=== PATIENT | male | born 1970 | race Hispanic/Latino ===

== ENCOUNTER → 2016-06-24 | Outpatient (CLI) | payer BC | END | disposition home or self-care (01) | LOC: GMAB 11:04 | PROVIDERS: ATTEND Family Medicine | DX: Z12.5 Encounter for screening for malignant neoplasm of prostate (principal) ==

== ENCOUNTER → 2016-09-02 | Outpatient (CLI) | payer BC ==
--- NOTE | 2016-09-03 07:31 | RAD ---
EXAM DESCRIPTION: Shoulder,Right 2 or More Views CLINICAL HISTORY: 45 years Male, PAIN IN RIGHT SHOULDER COMPARISON: None. FINDINGS: There is no acute fracture or malalignment. The AC joint is unremarkable. There is no rib fracture or soft tissue abnormality. IMPRESSION: Negative exam. Electronically signed by: Jan Watkins MD 09/03/2016 7:31 AM CDT Workstation: [id number]
== END | disposition home or self-care (01) ==
LOC: RAD 07:35
PROVIDERS: ATTEND Orthopaedic Surgery
DX: M25.511 Pain in right shoulder (principal)

== ENCOUNTER → 2016-10-23 | Outpatient (CLI) | payer BC | END | disposition home or self-care (01) | LOC: GMAB 14:59 | PROVIDERS: ATTEND Family Medicine | DX: N41.1 Chronic prostatitis (principal) ==

== ENCOUNTER 2017-04-19 13:25 | Emergency (ER) | payer BC ==
[2017-04-19 13:39] VITALS: BP 122/84; TEMP 97.4; O2SAT 96
--- NOTE | 2017-04-19 13:41 | ED.PDOC ---
History of Present Illness - General Time Seen by Provider: 04/19/17 13:32 Source: patient Exam Limitations: no limitations - History of Present Illness Timing/Duration: days - two Quality/Severity: severe Back Pain Location: lumbar spine Back Pain Radiation: buttocks Method of Injury/Prior Injury: twisted Improving Factors: rest Worsening Factors: movement Associated Symptoms: lower back pain - has episodic scrotal pain with back spasms Allergies/Adverse Reactions: Allergies NO KNOWN ALLERGY Allergy (Verified 12/15/15 05:57) Home Medications: Ambulatory Orders Cyclobenzaprine HCl 10 mg PO BEDTIME 11/11/14 Lisinopril 20 mg PO DAILY 11/11/14 Simvastatin 10 mg PO DAILY 11/11/14 Tamsulosin [Flomax] 0.4 mg PO QD 11/11/14 Acetaminophen W/ Codeine [Tylenol W/ CODEINE #3] 1 ea PO Q4HR PRN #20 04/19/17 Dapagliflozin Propanediol [Farxiga] 10 mg PO DAILY 04/19/17 Esomeprazole Magnesium [Nexium] 40 mg PO DAILY 04/19/17 Review of Systems - Review of Systems Constitutional: States: no symptoms reported. Denies: fever, weakness EENTM: States: no symptoms reported Respiratory: States: no symptoms reported. Denies: orthopnea, short of breath Cardiology: States: no symptoms reported. Denies: chest pain, palpitations Gastrointestinal/Abdominal: States: no symptoms reported. Denies: abdominal pain, nausea, vomiting Genitourinary: States: see HPI, pain. Denies: discharge, dysuria, frequency, hematuria Musculoskeletal: States: back pain, muscle pain, muscle stiffness Skin: States: no symptoms reported. Denies: rash Neurological: States: paresthesia - to R hip. Denies: weakness Endocrine: Denies: no symptoms reported Hematologic/Lymphatic: States: no symptoms reported Past Medical History (General) - Patient Medical History Hx Seizures: No Hx Stroke: No Hx Dementia: No Hx Asthma: No Hx of COPD: No Hx Cardiac Disorders: No Hx Congestive Heart Failure: No Hx Pacemaker: No Hx Hypertension: Yes Hx Thyroid Disease: No Hx Diabetes: Yes Hx Gastroesophageal Reflux: Yes Hx Renal Disease: No Hx Cancer: No Hx of HIV: No Hx Hepatitis C: No Hx MRSA: No - Vaccination History Hx Tetanus, Diphtheria Vaccination: No Hx Influenza Vaccination: Yes Hx Pneumococcal Vaccination: No - Social History Hx Tobacco Use: No Hx Chewing Tobacco Use: No Hx Alcohol Use: Yes - social Hx Substance Use: No Hx Substance Use Treatment: No Hx Depression: No Hx Physical Abuse: No Hx Emotional Abuse: No Hx Suspected Abuse: No Family Medical History - Family History Mother Name: Urmila Living Status: Age at (years of age): 62 Cause of : stomach cancer Hx Family Diabetes: Yes Age of Onset (years of age): unk Hx Family Cancer: Yes - stomach Age of Onset (years of age): 60 Father Family History: Unknown Name: huang Age (years): 65 Living Status: Still Living Hx Family Hypertension: Yes Age of Onset (years of age): unk Hx Family Diabetes: Yes Age of Onset (years of age): unk Physical Exam - Physical Exam General Appearance: Alert, Obvious distress Eyes, Ears, Nose, Throat Exam: PERRL/EOMI Neck Exam: non-tender, full range of motion Cardiovascular/Respiratory: normal peripheral pulses Gastrointestinal/Abdominal: normal bowel sounds, non tender, soft Back Exam: no CVA tenderness, no vertebral tenderness, decreased range of motion - severe R lateral back pain with movement, muscle spasm Extremity Exam: no evidence of injury, non-tender, no pedal edema, pain with movement - has positive straight leg raise at 30 degrees on R 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, no motor/sensory deficits, normal mood/ affect, oriented x 3 Skin Exam: normal color, warm/dry Progress - EKG/XRAY/CT XRAY: Lumbar spine Xray Comments: no acute changes Departure - Departure Clinical Impression: Lumbar back pain with radiculopathy affecting right lower extremity Disposition: Discharge to Home or Self Care Condition: Fair Referrals: William Lee MD [Primary Care Provider] - 1-2 Weeks Prescriptions: Acetaminophen W/ Codeine [Tylenol W/ CODEINE #3] 1 ea PO Q4HR PRN #20 PRN Reason: Pain -- Moderate To Severe Home Medications: Ambulatory Orders Cyclobenzaprine HCl 10 mg PO BEDTIME 11/11/14 Lisinopril 20 mg PO DAILY 11/11/14 Simvastatin 10 mg PO DAILY 11/11/14 Tamsulosin [Flomax] 0.4 mg PO QD 11/11/14 Acetaminophen W/ Codeine [Tylenol W/ CODEINE #3] 1 ea PO Q4HR PRN #20 04/19/17 Dapagliflozin Propanediol [Farxiga] 10 mg PO DAILY 04/19/17 Esomeprazole Magnesium [Nexium] 40 mg PO DAILY 04/19/17
[2017-04-19] MEDS ORDERED: MORPHINE SULFATE INJ 10 MG/ML VIAL IM ONE (13:47)
[2017-04-19] MEDS ORDERED: PROMETHAZINE HCL INJ 25 MG/ML VIAL IM ONE (13:47)
--- NOTE | 2017-04-19 14:17 | RAD ---
EXAM DESCRIPTION: Lumbar Spine 3 Views CLINICAL HISTORY: 46 years Male, R low back pain after injuty COMPARISON: None. FINDINGS: 3 views of the lumbar spine show no vertebral body fracture or subluxation. Mild disc space narrowing at L5-S1. There are small marginal ossified at several levels, worse at L5-S1.. The sacroiliac joint spaces are well-maintained. IMPRESSION: Mild degenerative changes, worse at L5-S1. No additional abnormality to explain patient symptoms. Electronically signed by: Jan Watkins MD 04/19/2017 2:16 PM [facility]
== END 2017-04-19 14:43 | disposition home or self-care (01) ==
LOC: ER 13:25
DX: M54.16 Radiculopathy, lumbar region (principal); I10 Essential (primary) hypertension; E11.9 Type 2 diabetes mellitus without complications; K21.9 Gastro-esophageal reflux disease without esophagitis
CPT/HCPCS: 72100; J2270; J2550

== ENCOUNTER → 2017-06-13 | Outpatient (CLI) | payer BC ==
--- NOTE | 2017-06-13 17:36 | RAD ---
EXAM DESCRIPTION: Wrist,Right 3 Views CLINICAL HISTORY: 46 years, Male, PAIN IN RIGHT WRIST COMPARISON: None FINDINGS: Right wrist 3 x-ray views is negative for fracture or dislocation. Carpal relationships are well-maintained. Distal radius and ulna appear intact. Normal metacarpals. No significant arthritic changes are observed. IMPRESSION: Negative for fracture or dislocation. Electronically signed by: Dion Olson MD 06/13/2017 5:34 PM CDT
--- NOTE | 2017-06-13 17:39 | RAD ---
EXAM DESCRIPTION: Knee,Right Complete CLINICAL HISTORY: 46 years, Male, PAIN IN RIGHT KNEE COMPARISON: None TECHNIQUE: 4 views of the right knee FINDINGS: No fracture or dislocation. Bones appear normally mineralized with normal trabecular pattern. Severe narrowing of the medial compartment is noted on frontal view. Spurring is seen at the tibial spines. Tiny subchondral lucency in the weightbearing surface of the medial femoral condyle could be an osteochondral lesion. There is some sclerosis and eburnation of the medial femoral condyle. Lateral view shows normal position of the patella. Minimal patellar spurring with no enthesopathy. No suprapatellar knee joint effusion. Normal contour of quadriceps and patellar tendons. Mild lateral patellar tilt is seen with no significant subluxation on patellar sunrise view. Minimal spurring along the anterior lateral femoral condyle and lateral margin of the patella. IMPRESSION: Negative for fracture or dislocation. Degenerative changes as described. Electronically signed by: Dion Olson MD 06/13/2017 5:36 PM CDT
--- NOTE | 2017-06-13 17:40 | RAD ---
EXAM DESCRIPTION: Pelvis CLINICAL HISTORY: 46 years Male, PAIN IN RIGHT HIP COMPARISON: None. TECHNIQUE: Single AP x-ray view of the pelvis FINDINGS: No fracture. No dislocation. No osseous lytic lesion. Calcifications are seen in the region of the prostate. Lucency over the sacrum is thought to be related to fecal material and bowel gas. Degenerative changes are seen in the lower lumbar spine with prominent spurring at the lumbosacral junction anteriorly. IMPRESSION: Negative for fracture or dislocation. Electronically signed by: Dion Olson MD 06/13/2017 5:38 PM CDT
== END ==
LOC: RAD 08:19
PROVIDERS: ATTEND Orthopaedic Surgery
DX: M25.561 Pain in right knee (principal); M25.531 Pain in right wrist; M25.551 Pain in right hip

== ENCOUNTER → 2017-09-29 | Outpatient (CLI) | payer BC | LOC: GMAE 10:30 | PROVIDERS: ATTEND Family Medicine | DX: E11.9 Type 2 diabetes mellitus without complications (principal) ==

== ENCOUNTER → 2018-07-08 | Outpatient (CLI) | payer BC | LOC: GMAE 11:50 | PROVIDERS: ATTEND Family Medicine | DX: Z00.01 Encounter for general adult medical examination with abnormal findings (principal) ==

== ENCOUNTER → 2018-09-15 | Outpatient (CLI) | payer BC ==
--- NOTE | 2018-09-15 08:57 | MRI ---
Study: MRI of the Left Shoulder. Indication: ROTATOR CUFF TEAR Technique: Multiplanar, multi sequence MRI of the left shoulder was obtained without intravenous contrast. Comparison: None. Findings: Unfortunately, examination is moderately motion degraded. Moderate AC joint osteoarthritis with a moderate size joint effusion. Type I acromion with mild lateral downsloping. Trace subacromial/subdeltoid bursal fluid. High-grade supraspinatus and infraspinatus tendinosis. Effectively full-thickness, fullwidth supraspinatus tendon tearing with high grade interstitial/articular tearing anterior half of the infraspinatus tendon insertion. Torn tendon fibers retracted to the level of the lateral margin acromion. High-grade articular, effectively full-thickness tearing superior two thirds subscapularis tendon insertion. Teres minor tendon intact. Mild atrophy and grade 1 fatty infiltration rotator cuff musculature. Long head biceps tendinosis and longitudinal fissuring with partial medial subluxation onto the lesser tuberosity. No transection. Anterior superior sublabral foramen. Circumferential labral truncation. Minimal glenohumeral joint osteoarthritis and tiny joint effusion. Mild subcortical cystic change of the posterior inferior glenoid rim. No acute fracture. Impression: Moderately motion degraded examination. Full-thickness, fullwidth supraspinatus tendon tearing with high-grade articular/interstitial tearing anterior infraspinatus tendon. High-grade articular, effectively full-thickness tearing superior two thirds subscapularis tendon insertion. Mild atrophy and grade 1 fatty infiltration rotator cuff musculature. Long head biceps tendinosis and longitudinal fissuring with partial medial subluxation onto the lesser tuberosity. Circumferential labral truncation noted. Minimal glenohumeral joint osteoarthritis with a tiny joint effusion. Moderate AC joint osteoarthritis. Electronically signed by: Bernard León MD 09/15/2018 8:55 AM CDT
== END ==
LOC: MRI 07:07
PROVIDERS: ATTEND Family Medicine
DX: M75.102 Unspecified rotator cuff tear or rupture of left shoulder, not specified as traumatic (principal); M62.512 Muscle wasting and atrophy, not elsewhere classified, left shoulder; M19.012 Primary osteoarthritis, left shoulder; M75.22 Bicipital tendinitis, left shoulder

== ENCOUNTER 2018-12-30 06:07 | Day surgery (SDC) | payer BC ==
--- NOTE | 2018-12-28 07:56 | HP ---
CHIEF COMPLAINT: Left shoulder pain. HISTORY OF PRESENT ILLNESS: Mr. Minor is a 47-year-old male with a history of pain in the left shoulder. He has had pain going on for at least 3 months and has failed conservative measures. MRI revealed a tear of the rotator cuff. Because of his ongoing pain and failure of conservative measures, he has requested operative intervention. The pain he has is isolated to the left, is sharp and constant. Today, the pain is at an 8. It was acute in onset and secondary to a fall. He has been unable to get any relief with any other factors. Aggravating factors include lifting, carrying, throwing and range of motion. Associated symptoms include weakness and subjective swelling. He has had no surgery there and minimal help from an injection. He has given informed consent for rotator cuff repair. PAST SURGICAL HISTORY: None. MEDICATIONS: 1. Lisinopril. 2. Metformin. 3. Simvastatin. 4. Tamsulosin. 5. Nexium. 6. Flomax. PAIN CONTRACT: None. ALLERGIES: NO KNOWN DRUG ALLERGIES. CODE STATUS: Full code. IMMUNIZATIONS: Up to date. SOCIAL HISTORY: The patient does not smoke or use any illicit drugs. He does drink on occasion. FAMILY HISTORY: None pertinent to today's complaint. REVIEW OF SYSTEMS: Negative except as indicated in the History of Present Illness. HEENT: The patient reports no symptoms. RESPIRATORY: The patient reports no symptoms. CARDIOVASCULAR: The patient reports no symptoms. GASTROINTESTINAL: The patient reports no symptoms GENITOURINARY: The patient reports no symptoms. MUSCULOSKELETAL: Negative except as noted in History of Present Illness. SKIN: The patient reports no symptoms. NEUROLOGIC: The patient reports no symptoms. PHYSICAL EXAMINATION: MENTAL STATUS: The patient is awake, alert, and is able to give a good history and participate in the physical. The patient is oriented to person, place and time. SKIN: Normal tone and turgor. HEENT: Normocephalic, atraumatic. Pupils equal, round and reactive. Mucosal membranes are moist. NECK: Normal range of motion. No thyromegaly, no lymphadenopathy. CHEST: Normal respiratory excursion. CARDIAC: Regular rate and rhythm. No murmurs, rubs or gallops. MUSCULOSKELETAL: The bilateral lower extremities show full active range of motion. He has intact sensation in the extremities and they are warm and well perfused. He has 5/5 strength, no deformity. He has no malalignment. He walks with a normal gait. There is no varus/valgus or anterior/posterior laxity of the knee. The right upper extremity shows full range of motion of the shoulder, elbow, wrist and digits. He has no deformities, no laxity, no neurologic deficiencies. Strength is 5/5. There is no crepitus. The left upper extremity shows he refuses to abduct more than about 80 degrees. He is refusing to go any further because of pain. He has full range of motion of the elbow, wrist and digits. He has positive Neer, positive Sanchez, positive drop arm test. He has slight weakness in abduction and forward flexion secondary to pain. There is no malalignment. RADIOLOGY: My interpretation of the MRI shows a tear of the supraspinatus. My interpretation of the x-rays shows no acute bony abnormality. ASSESSMENT: 1. Rotator cuff tear failed conservative measures. PLAN: The plan at this point is for rotator cuff repair. We have discussed the risks, benefits, and alternatives to that and the patient has given informed consent. #[id number] [facility]
[2018-12-30] MEDS ORDERED: SODIUM CHL 0.9% 100ML MINI-BAG 100 ML IVPB ONE (06:50)
[2018-12-30] MEDS ORDERED: LACTATED RINGERS 1,000 ML ONE (06:50)
[2018-12-30] MEDS ORDERED: ceFAZolin SODIUM 1 GM VIAL ONE (06:50)
[2018-12-30] MEDS ORDERED: BUPIVACAINE 0.5% 30 ML VIAL INJ ONE (08:08)
[2018-12-30] MEDS ORDERED: SUGAMMADEX SODIUM 200 MG/2 ML VIAL IV ONE (08:10)
[2018-12-30] MEDS ORDERED: ROCURONIUM BROMIDE 10 MG/ML VIAL ONE (08:11)
[2018-12-30] MEDS ORDERED: MIDAZOLAM INJ 2 MG/2 ML VIAL ONE (09:49)
[2018-12-30] MEDS ORDERED: fentaNYL CITRATE INJ 50 MCG/ML AMP ONE ×2 (09:49→10:19)
[2018-12-30] MEDS ORDERED: PROPOFOL 200 MG/20 ML VIAL IV ONE (10:00)
[2018-12-30] MEDS ORDERED: LIDOCAINE 1% 10 ML VIAL INJ ONE (10:00)
[2018-12-30] MEDS ORDERED: DEXAMETHASONE INJ 10 MG/ML VIAL IV ONE (10:00)
[2018-12-30] MEDS ORDERED: ONDANSETRON INJ 4 MG/2 ML VIAL IV ONE (10:00)
[2018-12-30] MEDS ORDERED: KETAMINE HCL 100 MG/ML VIAL ONE (10:19)
[2018-12-30] MEDS: BUPIVACAINE 0.5% 30 ML VIAL INJ ONE ×2 (11:00→11:33)
[2018-12-30] MEDS: BUPIVACAINE LIPOSOME 13.3 MG/ML VIAL INJ ONE ×2 (11:00→11:33)
[2018-12-30] MEDS: VANCOMYCIN HCL INJ 1,000 MG VIAL IVPB ONE ×2 (11:01→11:35)
[2018-12-30] MEDS: ceFAZolin SODIUM 1 GM VIAL ONE ×2 (11:01→11:35)
[2018-12-30] MEDS: HYDROmorphone HCL INJ 2 MG/ML VIAL ONE ×3 (12:36→13:00)
[2018-12-30] MEDS ORDERED: HYDROmorphone HCL INJ 2 MG/ML VIAL IV ONE (13:10)
--- NOTE | 2018-12-30 13:27 | OP ---
DATE OF PROCEDURE: 12/30/18 PREOPERATIVE DIAGNOSIS: 1. Rotator cuff tear. 2. Impingement. POSTOPERATIVE DIAGNOSIS: 1. Rotator cuff tear. 2. Impingement. PROCEDURE: 1. Subacromial decompression. 2. Rotator cuff repair. SURGEON: Fam Cates MD. FOOD TASTER: Ron Botello CST, SA-C. ANESTHESIA: General anesthesia. COMPLICATIONS: None. FINDINGS: Large tear affecting the supraspinatus with retraction of about 2.5 cm. The tear width was approximately 3 cm. INDICATION: Lester has a history of severe pain that has been getting progressively worse. He has had injection as well as other conservative measures, however, has failed to gain relief. Because of his ongoing pain, he has requested operative intervention. After discussing the risks, benefits and alternatives to that, he has given informed consent for that. PROCEDURE: The patient was brought to the Operating Room and placed in the supine position. General anesthesia was induced and the patient was transitioned into the beach chair position. Following transitioning into the beach chair position, the arm and shoulder were sterilely prepped and draped. Following prepping and draping, an incision was made at the lateral border of the acromion. Dissection was carried down to the deltoid and full thickness skin flaps were developed. A split was made between the anterior and middle heads of the deltoid. A bursectomy was performed. Following bursectomy, a partial acromioplasty was performed. Subsequent to that, the rotator cuff was identified and thoroughly examined. The aforementioned cuff tear was noted. After defining the cuff tear, an area at the anatomic insertion was debrided. The tendon was debrided and 4 suture anchors were used to reapproximate it in an anatomic position. The arm was taken through a range of motion and there was no undue tension at the repair site. Following that, the wound was thoroughly irrigated and the deltoid was reapproximated. The skin was closed with a running and interrupted subcuticular stitches. Sterile dressings were placed. The patient was placed in a sling, awoken from anesthesia and taken to Recovery. POSTOPERATIVE PLAN: He is going to be limited with regards to range of motion for at least 6 weeks. Given the size of the tear, we are going to be extremely conservative. He will followup with us in 2 days. #[id number] [facility]
[2018-12-30] MEDS ORDERED: HYDROcodone 5MG/APAP 325MG 1 EA TAB PO ONE (13:30)
[2018-12-30] MEDS ORDERED: HYDROcodone 5MG/APAP 325MG 1 EA TAB ONE (13:47)
[2018-12-30 15:21] VITALS: BP 170/82; TEMP 97.2; O2SAT 95
== END 2018-12-30 15:00 | disposition home or self-care (01) ==
LOC: AMB 06:07
PROVIDERS: ATTEND Orthopaedic Surgery
DX: M75.102 Unspecified rotator cuff tear or rupture of left shoulder, not specified as traumatic (principal); M75.42 Impingement syndrome of left shoulder; Z79.84 Long term (current) use of oral hypoglycemic drugs; Z79.899 Other long term (current) drug therapy
CPT/HCPCS: 01610; 23410; 36416; 80307; 82948; 87070; J0690; J1100; J1170; J2250; J2405; J3010; J3370; J3490; J7050; J7120

== ENCOUNTER 2019-06-03 | Emergency (ER) | payer BC | END 2019-06-03 09:21 | disposition home or self-care (01) | DX: N13.2 Hydronephrosis with renal and ureteral calculous obstruction (principal); R10.84 Generalized abdominal pain; K21.9 Gastro-esophageal reflux disease without esophagitis; E11.9 Type 2 diabetes mellitus without complications; I10 Essential (primary) hypertension; Z79.84 Long term (current) use of oral hypoglycemic drugs; Z79.899 Other long term (current) drug therapy | CPT/HCPCS: 74177; 80048; 80076; 81001; 83690; 84484; 85025; 93005; A4216; J1170; J1885; J2405; J2550; J3010; J3490; J7030 ==

== ENCOUNTER 2019-08-20 08:43 | Emergency (ER) | payer BC ==
[2019-08-20] MEDS ORDERED: ONDANSETRON INJ 4 MG/2 ML VIAL IV ONE (08:49)
[2019-08-20] MEDS ORDERED: MORPHINE SULFATE INJ 10 MG/ML VIAL IV ONE ×2 (08:49→09:45)
[2019-08-20] MEDS ORDERED: SODIUM CHLORIDE 0.9% (FLUSH) 10 ML SYG IV PRN (08:49)
[2019-08-20] MEDS ORDERED: SODIUM CHLORIDE 0.9% 1000ML 1,000 ML IVS PRN (08:49)
[2019-08-20] MEDS ORDERED: KETOROLAC TROMETHAMINE INJ 30 MG/ML VIAL IV ONE (08:49)
--- NOTE | 2019-08-20 08:58 | ED.PDOC ---
History of Present Illness - General Chief Complaint: Abdominal Pain Stated Complaint: Right flank pain Time Seen by Provider: 08/20/19 08:49 Information Source: patient, RN notes reviewed, Vital Signs reviewed, family Exam Limitations: no limitations - History of Present Illness Initial Comments: This is a 48-year-old male with history of diabetes, hypertension, hyperlipidemia, presenting to the emergency department with severe right flank pain ongoing for the past 2 days. Patient states the pain is markedly worse today. He denies any difficulty urinating, blood in his urine, or fever. He states the pain begins in the right flank and radiates to the right testicle. He states the pain is similar to his previous kidney stone. He reports of associated nausea and vomiting. No diarrhea. No sick contacts, no recent travel, no COVID-19 contacts Review of Systems - Review of Systems Constitutional: States: diaphoresis. Denies: chills, fever EENTM: Denies: nose pain, throat pain Respiratory: Denies: cough, orthopnea, short of breath Cardiology: Denies: chest pain, edema Gastrointestinal/Abdominal: States: abdominal pain, nausea, vomiting. Denies: constipation, diarrhea Genitourinary: Denies: dysuria, frequency, hematuria Musculoskeletal: Denies: back pain, joint pain, muscle stiffness, neck pain Skin: Denies: lesions, rash Neurological: Denies: headache, paresthesia, weakness Endocrine: States: no symptoms reported Hematologic/Lymphatic: States: no symptoms reported Past Medical History (General) - Patient Medical History Hx Seizures: No Hx Stroke: No Hx Dementia: No Hx Asthma: No Hx of COPD: No Hx Cardiac Disorders: No Hx Congestive Heart Failure: No Hx Pacemaker: No Hx Hypertension: Yes Hx Thyroid Disease: No Hx Diabetes: Yes - FSBS 104 Hx Gastroesophageal Reflux: Yes Hx Renal Disease: No Hx Cancer: No Hx of HIV: No Hx Hepatitis C: No Hx MRSA: No - Vaccination History Hx Tetanus, Diphtheria Vaccination: No Hx Influenza Vaccination: Yes Hx Pneumococcal Vaccination: No - Social History Hx Tobacco Use: No Hx Chewing Tobacco Use: No Hx Alcohol Use: Yes - social Hx Substance Use: No Hx Substance Use Treatment: No Hx Depression: No Hx Physical Abuse: No Hx Emotional Abuse: No Hx Suspected Abuse: No Family Medical History - Family History Father Family History: Unknown Name: huang Age (years): 65 Living Status: Still Living Hx Family Hypertension: Yes Age of Onset (years of age): unk Hx Family Diabetes: Yes Age of Onset (years of age): unk Mother Name: Urmila Living Status: Age at (years of age): 62 Cause of : stomach cancer Hx Family Diabetes: Yes Age of Onset (years of age): unk Hx Family Cancer: Yes - stomach Age of Onset (years of age): 60 Physical Exam - Physical Exam General Appearance: Alert, Obese, Well Developed, Well Nourished, Other - Appears uncomfortable Eyes, Ears, Nose, Throat Exam: PERRL/EOMI, normal ENT inspection Neck: non-tender, full range of motion, supple Respiratory: chest non-tender, lungs clear, normal breath sounds, no respiratory distress, no accessory muscle use Cardiovascular/Chest: normal peripheral pulses, regular rate, rhythm, no edema, no gallop, no JVD, no murmur Peripheral Pulses: 2+ Gastrointestinal/Abdominal: soft, tenderness - Right flank, no rebound or guarding. No right upper quadrant tenderness, negative Ambriz sign. Male Genitalia: normal genitalia, other - No testicular tenderness Back Exam: normal inspection, no CVA tenderness, no vertebral tenderness Extremity: normal range of motion, non-tender, normal inspection, no pedal edema, no calf tenderness Neurologic: no motor/sensory deficits, alert, normal mood/affect, oriented x 3 Skin Exam: normal color, diaphoresis Progress - Progress Progress: 08/20/19 09:56 Recheck. Still nauseated, retching, has significant pain after 2 doses of morphine and IV Toradol. Will try IV lidocaine, will add Phenergan. 08/20/19 11:25 Rechecked. Pain improved after IV lidocaine. Still nauseated. Will give Reglan and reassess. [facility] reviewed. 08/20/19 11:55 Feeling better after Reglan. Pain tolerable, wants to go home.Strict warnings given to return the emergency room for worsening pain, intractable vomiting, fever, or any other concerns. DDX: Kidney stone, pyelonephritis, low suspicion for aortic injury MDM: Patient presenting with right flank pain, history of stones. Pain was fairly difficult to control in the emergency department, required IV lidocaine, IV morphine, Toradol. Pain was eventually tolerable after IV lidocaine. I explained possibility of infection that may arise prior to stone passage. Strict warnings given to return emergency room for fever, intractable vomiting, worsening pain, or any other concerns. Recommended follow-up with urology next week for recheck. Frank Awad DO Markhitesh #[id number] - Results/Orders Results/Orders: EKG shows interpreted by me at 9:36 AM. Normal sinus rhythm, rate of 61, normal axis, normal intervals, no ST segment elevations or depressions. Study: CT abdomen and pelvis. Indication: Right flank pain Technique: CT of the abdomen and pelvis obtained without intravenous contrast. This exam was performed according to our departmental dose-optimization program, which includes automated exposure control, adjustment of the mA and/or kV according to patient size and/or use of iterative reconstruction technique. Comparison: June 03, 2019. Findings: Lower chest, liver, gallbladder, pancreas, spleen, adrenal glands, left kidney, bladder, prostate gland demonstrate normal unenhanced CT appearance. Within the proximal right ureter at the L4 level is a 5 mm obstructing stone with mild to moderate right hydroureteronephrosis as well as right renal enlargement and perinephric stranding. Colonic diverticulosis. Stomach and small bowel unremarkable. Appendix not visualized. No free fluid. No free air. No pathologically enlarged lymphadenopathy. Mild sclerosis aortoiliac bifurcation. Degenerative changes of the spine noted. Impression: 5 mm obstructing stone proximal right ureter with [id number] right hydronephrosis. Additional findings as above. Electronically signed by: Bernard León MD 08/20/2019 9:31 AM CDT Departure - Departure Clinical Impression: Flank pain, Colic, ureteral, Ureterolithiasis Disposition: Discharge to Home or Self Care Condition: Good Departure Forms: ED Discharge - Pt. Copy, Patient Portal Self Enrollment Instructions: Renal Colic (DC) Referrals: SONJA ROMERO MD [Referring] - 1 Week OTONIEL OSL MD [Primary Care Provider] - 1-5 Days Prescriptions: HYDROcodone 10MG/APAP 325MG [[place] 10/325] 1 ea PO Q6H PRN #20 tab PRN Reason: Moderate To Severe Pain Ibuprofen [Motrin] 600 mg PO Q6H PRN #20 tab PRN Reason: Mild To Moderate Pain Ondansetron Odt [Zofran ODT] 8 mg PO Q8H PRN #15 tab PRN Reason: Nausea Home Medications: Ambulatory Orders RX: Lisinopril 20 mg PO DAILY 11/11/14 RX: Simvastatin 10 mg PO DAILY 11/11/14 Tamsulosin [Flomax] 0.4 mg PO QD 11/11/14 Esomeprazole Magnesium [Nexium] 40 mg PO DAILY 04/19/17 Metformin HCl [Metformin Hydrochloride E] 500 mg PO BID 12/25/18 HYDROcodone 10MG/APAP 325MG [[place] 10] 1 ea PO Q6H PRN #20 tab 08/20/19 Ibuprofen [Motrin] 600 mg PO Q6H PRN #20 tab 08/20/19 Ondansetron Odt [Zofran ODT] 8 mg PO Q8H PRN #15 tab 08/20/19 Additional Instructions: Strain your urine. Return to emergency room for worsening pain, intractable vomiting, fever, or any other concerns. Follow-up with urology next week if pain is not completely resolved
--- NOTE | 2019-08-20 09:33 | CT ---
Study: CT abdomen and pelvis. Indication: Right flank pain Technique: CT of the abdomen and pelvis obtained without intravenous contrast. This exam was performed according to our departmental dose-optimization program, which includes automated exposure control, adjustment of the mA and/or kV according to patient size and/or use of iterative reconstruction technique. Comparison: June 03, 2019. Findings: Lower chest, liver, gallbladder, pancreas, spleen, adrenal glands, left kidney, bladder, prostate gland demonstrate normal unenhanced CT appearance. Within the proximal right ureter at the L4 level is a 5 mm obstructing stone with mild to moderate right hydroureteronephrosis as well as right renal enlargement and perinephric stranding. Colonic diverticulosis. Stomach and small bowel unremarkable. Appendix not visualized. No free fluid. No free air. No pathologically enlarged lymphadenopathy. Mild sclerosis aortoiliac bifurcation. Degenerative changes of the spine noted. Impression: 5 mm obstructing stone proximal right ureter with [id number] right hydronephrosis. Additional findings as above. Electronically signed by: Bernard León MD 08/20/2019 9:31 AM CDT
[2019-08-20] MEDS ORDERED: LIDOCAINE IV ONE (09:48)
[2019-08-20] MEDS ORDERED: PROMETHAZINE HCL INJ 12.5 MG in SODIUM CHLORIDE 0.9% 50ML 50 ML IVPB ONE (09:55)
[2019-08-20] MEDS ORDERED: SODIUM CHLORIDE 0.9% 100ML 100 ML IVPB ONE (10:11)
[2019-08-20] MEDS ORDERED: METOCLOPRAMIDE HCL INJ 10 MG/2 ML VIAL IV ONE (11:24)
[2019-08-20] MEDS ORDERED: HYDROcodone 10MG/APAP 325MG 1 EA TAB PO ONE (12:16)
[2019-08-20 12:46] VITALS: BP 195/99; TEMP 97.2; O2SAT 96
== END 2019-08-20 12:47 | disposition home or self-care (01) ==
LOC: ER 08:43
DX: N20.1 Calculus of ureter (principal); R10.9 Unspecified abdominal pain; R11.2 Nausea with vomiting, unspecified; E11.9 Type 2 diabetes mellitus without complications; I10 Essential (primary) hypertension; E78.5 Hyperlipidemia, unspecified
CPT/HCPCS: 36415; 74176; 80048; 81001; 85025; 93005; A4216; J1885; J2270; J2405; J2550; J2765; J7030; J7050

== ENCOUNTER → 2019-12-15 | Outpatient (CLI) | payer BC | LOC: GMAE 10:28 | PROVIDERS: ATTEND Family Medicine | DX: Z00.00 Encounter for general adult medical examination without abnormal findings (principal) ==